=== PATIENT | male | born 2000 | race Caucasian/White ===

== ENCOUNTER 2023-06-12 14:46 | Emergency (ER) | payer OTHER, SELFPAY ==
[2023-06-12] VITALS (12 sets, daily range): BP systolic 115–183; BP diastolic 78–104; PULSE 109–124; RESP 14–27; TEMP 37.1; O2SAT 97–100; BMI 25.0
--- NOTE | 2023-06-12 14:54 | DI.RAD.S_ITS ---
PROCEDURE: XR CHEST 1V INDICATIONS: chest pain TECHNIQUE: One view of the chest was acquired. COMPARISON: CR, XR RIBS RIGHT WITH PA CHEST, 02/24/2018, 16:32. FINDINGS: Surgical changes and devices: None. Lungs and pleura: Lungs are clear. No pleural effusions or pneumothorax. Mediastinum: Mediastinal contours appear normal. Heart size is normal. Bones and chest wall: No suspicious bony lesions. Overlying soft tissues appear unremarkable. IMPRESSION: Portable chest within normal limits for age. Dictated by: Loren Rivera M.D. on 06/12/2023 at 15:36 Approved by: Loren Rivera M.D. on 06/12/2023 at 15:37
[2023-06-12] MEDS: ASPIRIN 81 MG CHEW TAB 324 MG PO (15:22)
[2023-06-12 15:42] LABS: INR 1.1 (0.9-1.3); Prothrombin Time 13.1 SECONDS (10.1-12.7)
[2023-06-12 15:44] LABS: PTT Partial Thromboplastin Tim 31 SECONDS (26-36)
[2023-06-12 15:46] LABS: Alanine Aminotransferase 59 IU/L (<50); Albumin 5.1 g/dL (3.5-5.0); Albumin Globulin Ratio 1.5 (1.0-2.8); Alkaline Phosphatase 65 U/L (38-126); Aspartate Aminotransferase 37 IU/L (17-59); BUN Creatinine Ratio 14.9 (6-22); Blood Urea Nitrogen 11 mg/dL (9-20); Calcium 9.8 mg/dL (8.4-10.2); Carbon Dioxide 23 mmol/L (22-32); Chloride 103 mmol/L (98-107); Creatine Kinase 75 U/L (55-170); Estimated Glomerular Filt Rate > 60 mL/min (>60); Globulin 3.3 g/dL (1.7-4.1); Glucose 99 mg/dL (70-100); HEMOLYSIS 52 (0-50); Lipase 66 U/L (23-300); Magnesium 2.1 mg/dL (1.6-2.3); Sodium 137 mmol/L (137-145); Total Protein 8.4 g/dL (6.3-8.2)
[2023-06-12 15:55] LABS: Add Manual Diff / Slide Review NO; Basophils Absolute Auto 0 /uL (0-100); Basophils Percent Auto 0.7 % (0-2); Eosinophils Absolute Auto 100 /uL (0-450); Eosinophils Percent Auto 1.1 % (2-4); Hematocrit 48.8 % (41-53); Lymphocytes Absolute Auto 1700 /uL (1100-4500); Lymphocytes Percent Auto 23.5 % (25-40); Mean Corpuscular HGB Conc 34.8 % (30-36); Mean Corpuscular Hemoglobin 30.2 PG (26-34); Mean Corpuscular Volume 86.9 fL (80-100); Monocytes Absolute Auto 600 /uL (0-900); Monocytes Percent Auto 8.9 % (3-14); Neutrophils Absolute Auto 4700 /uL (1500-7000); Neutrophils Percent Auto 65.8 % (50-75); Platelet Count 337 X10^3/uL (150-400); Red Blood Cell Count 5.62 X10^6/uL (4.5-5.9); Red Cell Distribution Width 12.9 % (11.6-14.8); White Blood Cell Count 7.1 X10^3/uL (4.5-11.0)
[2023-06-12 15:57] LABS: Troponin I < 0.012 ng/mL (0.01-0.034)
--- NOTE | 2023-06-12 18:09 | ED.CHESTPAIN ---
HPI - Chest Pain General Chief Complaint: Chest Pain Stated Complaint: CHEST PAIN Time Seen by Provider: 06/12/23 18:09 Source: patient Mode of arrival: Ambulatory Limitations: no limitations History of Present Illness HPI narrative: 22-year-old male former smoker without chronic medical history presents with his significant other and a chief complaint of chest pressure that started this afternoon at about 2:00 a.m. while he was driving to work. He denies any obvious provocation, palliation or radiation. He has some associated shortness of breath and lightheadedness. He states he is had no cardiac history. He denies fever or chills. He denies nausea, vomiting or diarrhea. He denies travel, trauma, history of clot, cancer or lower extremity pain, swelling or redness. He denies exertional symptoms and denies exercise intolerance. He denies any dietary change but does state that he started Wellbutrin of Saturday. Ever since he started Wellbutrin he has been having episodes of what he refers to his dizziness and some disorientation which persists, however the chest pain only started today Related Data Allergies Allergy/AdvReac Type Severity Reaction Status Date / Time pseudoephedrine Allergy Difficulty Verified 06/12/23 14:54 Breathing Review of Systems Review of Systems Narrative: GENERAL: Denies chills, fatigue, malaise, fever, sweats. HEENT: Denies sinus pain, ear pain, sore throat, difficulty swallowing, dizziness. RESPIRATORY: Denies dyspnea, cough, wheezing, hemoptysis, sputum. CARDIOVASCULAR: See HPI GASTROINTESTINAL: Denies nausea, vomiting, abdominal pain, diarrhea, constipation, melena. : Denies dysuria, frequency, incontinence, hematuria, urinary retention. MUSCULOSKELETAL: denies weakness, joint pain, or bony pain SKIN: Denies rash, skin lesions, or other NEUROLOGIC: Denies weakness, headache, numbness, change in speech, confusion, seizures, incoordination. PSYCHIATRIC: No concerning psychosocial issues. 12 point review of systems is negative except for those stated above Patient History Social History Smoking Status: Former smoker Smoking Status: Former smoker alcohol intake frequency: holidays/special occasions only Substance Use Type: marijuana Exam Narrative Exam Narrative: GENERAL: [22] year old patient appears stated age. Well-developed patient, in mild distress. HEAD: Atraumatic. Normocephalic. EYES: Pupils equal round and reactive. Extraocular motions intact. No scleral icterus. No injection or drainage. ENT: Nose without bleeding, purulent drainage. Throat without erythema, tonsillar hypertrophy or exudate. Airway patent. NECK: Trachea midline. Non tender CARDIOVASCULAR: Tachycardic but regular rhythm without murmurs, gallops, or rubs. RESPIRATORY: Clear to auscultation. Breath sounds equal bilaterally. No wheezes, rales, or rhonchi. GASTROINTESTINAL: Abdomen soft, non-tender, nondistended. EXTREMITIES: No edema or joint tenderness. BACK: Nontender without deformity or crepitance. No flank tenderness. NEURO: AOx3. SKIN: No rash or erythema of visible areas Initial Vital Signs Initial Vital Signs: Vital Signs Temperature 98.8 F 06/12/23 14:49 Pulse Rate 115 H 06/12/23 14:49 Respiratory Rate 18 06/12/23 14:49 Blood Pressure 183/99 H 06/12/23 14:49 Pulse Oximetry 100 06/12/23 14:49 Oxygen Delivery Method Room Air 06/12/23 14:49 Course Orders Ordered: ED Orders 06/12/23 15:25 Complete Blood Count AUTO DIFF Stat Comprehensive Metabolic Panel Stat D Dimer Stat Lipase Stat Magnesium Stat PTT Partial Thromboplastin [place] Stat Prothrombin Time INR Stat Troponin & CK Cardiac Panel Stat 06/12/23 18:43 EKG-12 Lead Stat 06/12/23 19:10 Troponin & CK Cardiac Panel Stat Discontinued Medications Aspirin (Aspirin 81 Mg Chew Tab) 324 mg PO NOW ONE Stop: 06/12/23 14:55 Last Admin: 06/12/23 15:22 Dose: 324 mg Documented By: EARNEST Sodium Chloride (Normal Saline 0.9%) 1,000 mls @ 1,000 mls/hr IV BOLUS ONE Stop: 06/12/23 19:33 Last Infusion: 06/12/23 20:10 Dose: Infused Documented By: Admin: 06/12/23 19:16 Dose: 1,000 mls/hr Documented By: DENNIS Sodium Chloride (Normal Saline 0.9%) 1,000 mls @ 1,000 mls/hr IV BOLUS ONE Stop: 06/12/23 21:12 Last Infusion: 06/12/23 21:23 Dose: Infused Documented By: Admin: 06/12/23 20:19 Dose: 1,000 mls/hr Documented By: DENNIS Vital Signs Vital signs: Vital Signs - 8 hr 06/12/23 17:55 06/12/23 18:58 06/12/23 18:58 Pulse Rate 119 H 112 H Respiratory Rate 16 Blood Pressure 115/81 148/104 H Pulse Oximetry 97 100 Oxygen Delivery Method Room Air 06/12/23 19:00 06/12/23 19:00 06/12/23 19:30 Pulse Rate 124 H Respiratory Rate 27 H Blood Pressure 131/86 131/85 Pulse Oximetry 99 Oxygen Delivery Method 06/12/23 19:30 06/12/23 20:00 06/12/23 20:00 Pulse Rate 110 H 109 H Respiratory Rate 20 16 Blood Pressure 135/87 Pulse Oximetry 100 100 Oxygen Delivery Method 06/12/23 20:14 06/12/23 20:14 06/12/23 20:30 Pulse Rate 112 H 112 H Respiratory Rate 26 H 23 Blood Pressure 126/87 Pulse Oximetry 100 99 Oxygen Delivery Method 06/12/23 20:31 06/12/23 20:31 06/12/23 21:00 Pulse Rate 116 H Respiratory Rate 14 Blood Pressure 122/79 133/85 Pulse Oximetry 99 Oxygen Delivery Method 06/12/23 21:00 06/12/23 21:30 06/12/23 21:30 Pulse Rate 115 H 115 H Respiratory Rate 22 18 Blood Pressure 126/78 Pulse Oximetry 100 98 Oxygen Delivery Method MDM - Chest Pain Lab Data 06/12/23 15:25 06/12/23 15:25 Labs: Lab Results 06/12/23 06/12/23 Range/Units 15:25 19:10 WBC 7.1 (4.5-11.0) X10^3/uL RBC 5.62 (4.5-5.9) X10^6/uL Hgb 17.0 (13.5-17.5) g/dL Hct 48.8 (41-53) % MCV 86.9 (80-100) fL MCH 30.2 (26-34) PG MCHC 34.8 (30-36) % RDW 12.9 (11.6-14.8) % Plt Count 337 (150-400) X10^3/uL Neut % (Auto) 65.8 (50-75) % Lymph % (Auto) 23.5 L (25-40) % [place] % (Auto) 8.9 (3-14) % Eos % (Auto) 1.1 L (2-4) % Baso % (Auto) 0.7 (0-2) % Neut # (Auto) 4700 (7446-9330) /uL Lymph # (Auto) 1700 (8160-5832) /uL [place] # (Auto) 600 (0-900) /uL Eos # (Auto) 100 (0-450) /uL Baso # (Auto) 0 (0-100) /uL PT 13.1 H (10.1-12.7) SECONDS INR 1.1 (0.9-1.3) APTT 31 (26-36) SECONDS D-Dimer 348 (<500) ng/ml Sodium 137 (137-145) mmol/L Potassium 4.0 (3.4-5.1) mmol/L Chloride 103 (98-107) mmol/L Carbon Dioxide 23 (22-32) mmol/L BUN 11 (9-20) mg/dL Creatinine 0.74 (0.66-1.25) mg/dL Estimated GFR > 60 (>60) mL/min BUN/Creatinine Ratio 14.9 (6-22) Glucose 99 (70-100) mg/dL Calcium 9.8 (8.4-10.2) mg/dL Magnesium 2.1 (1.6-2.3) mg/dL Total Bilirubin 2.0 H (0.2-1.3) mg/dL AST 37 (17-59) IU/L ALT 59 H (<50) IU/L Alkaline Phosphatase 65 (38-126) U/L Total Creatine Kinase 75 66 (55-170) U/L Troponin I < 0.012 < 0.012 (0.01-0.034) ng/mL Total Protein 8.4 H (6.3-8.2) g/dL Albumin 5.1 H (3.5-5.0) g/dL Globulin 3.3 (1.7-4.1) g/dL Albumin/Globulin Ratio 1.5 (1.0-2.8) Lipase 66 (23-300) U/L [facility] Narrative Medical decision making narrative: [22] year old patient presents with chest pain Multiple etiologies for patient's symptoms considered including, but not limited to: [Cardiac ischemia versus pulmonary embolism versus pneumonia versus electrolyte abnormality versus other] Prior Charts reviewed in our EMR Primary Historian: patient Labs reviewed and interpreted by myself: No leukocytosis or left shift, no signs of anemia, electrolytes and renal function within normal limits Imaging reviewed: Chest x-ray without acute process Patient's history and physical exam reassuring, symptoms only started after Wellbutrin. Patient had multiple diagnoses considered including cardiac ischemia which is thought extremely unlikely given low risk, no exertional symptoms, nonischemic EKG, low heart score, troponin x2 negative. Pulmonary embolism considered but thought unlikely given negative D-dimer. No signs of dehydration, anemia, infectious cause. Patient states that he is usually tachycardic in the 90s and has a referral to Cardiology to address this. Symptoms started after Wellbutrin which is known to cause palpitations. Patient has been observed for quite some time and is asymptomatic without obvious other cause. Extensive discussion about risks and benefits, patient prefers to go home, will contact his stripper preliminary, plans to not take Wellbutrin moving forward. Return precautions include but not limited to recurrence of chest pain, shortness of breath, dizziness, passing out or other concerning symptoms Patient's symptoms improved over duration of stay with above-stated therapies. Findings and discharge diagnosis discussed with patient/family followed by verbalization of understanding Return precautions discussed with patient/family whom verbalize understanding of diagnosis and plan Discharge Plan Departure Patient Disposition: Home Clinical Impression: Atypical chest pain Instructions: DI for Atypical Chest Pain, DI for Tachycardia Activity Restrictions/Additional Instructions: *You have been diagnosed with [atypical chest pain and elevated heart rate. As we discussed your history and physical exam are very reassuring and there is no evidence of heart attack, blood clot, anemia or infection. Your heart rate does remain a bit elevated which could be a consequence of your new medication but certainly needs to be followed up with your stripper preliminary.] *What to do: *Please continue to take your regular medications as directed. [ ] New medication prescriptions sent to your pharmacy: [ ] [ ] New medication written as a paper prescription [ ] No new medications given *Please follow up with your primary care provider in 2-3 days, call for an appointment. Let them know you were seen in the Emergency Department and that we ask that you be seen in follow up. We will electronically transmit a record of today's note if your PCP is in our system *If you do not have a primary care provider please contact the [facility] Resource line at [phone]. They will ask some questions about your medical history and help get you set up with a doctor in the community. *Return to Emergency Department if you should have any new, worsening or concerning symptoms, such as [fever greater than 101 F, shaking chills, worsening pain, persistent vomiting or other bothersome symptoms] Stand Alone Forms: Patient Portal/API
[2023-06-12 18:43] LABS: D Dimer 348 ng/ml (<500)
[2023-06-12] MEDS: SODIUM CHLORIDE 0.9% 1,000 ML 1000 ML IV ×2 (19:16→20:19)
[2023-06-12 19:28] LABS: Creatine Kinase 66 U/L (55-170)
[2023-06-12 19:41] LABS: Troponin I < 0.012 ng/mL (0.01-0.034)
== END 2023-06-12 21:48 | disposition home or self-care (01) ==
PROVIDERS: Emergency Medicine; Emergency Provider Emergency Medicine
DX: R07.89 Other chest pain (principal)
CPT/HCPCS: 36415; 71045; 80053; 82550; 83690; 83735; 84484; 85025; 85379; 85610; 85730; 93005; 96360; 96361; 99284